=== PATIENT | female | born 1985 | race Caucasian/White ===

== ENCOUNTER 2022-05-17 11:50 | Outpatient (CLI) | payer MEDICAID, SELFPAY ==
--- NOTE | 2022-05-17 12:08 | XR_ITS ---
WS: [id number] XR cervical spine 3V* [id number] REASON FOR EXAM: chronic neck pain FINDINGS: Mild straightening of the normal lordosis of the cervical spine. Normal odontoid and cervical vertebral bodies. Intervertebral disc spaces are intact and well preserved. Normal facet joints. 1.5 mm of anterolisthesis of C4 on C5. XR/XR cervical spine 3V* [id number] IMPRESSION: Mild straightening of the normal lordosis of the cervical spine with slight ant erolisthesis of C4 on C5.
[2022-05-17 13:44] LABS: Testosterone Total 47.7 ng/dL (8.4-48.1)
[2022-05-17 14:21] LABS: Luteinizing Hormone 8.8 mIU/mL (0.5-41.7); Prolactin 5.66 ng/mL (4.8-23.3)
[2022-05-21 16:59] LABS: Estrogens Total 173.6 pg/mL
== END 2022-05-17 11:51 | disposition home or self-care (01) ==
LOC: RAD 11:54
PROVIDERS: PCP Family Medicine; Visit Provider Family Medicine
DX: M54.2 Cervicalgia (principal); G89.29 Other chronic pain; E28.2 Polycystic ovarian syndrome
CPT/HCPCS: 36415; 72040; 82672; 83001; 83002; 84144; 84146; 84403

== ENCOUNTER 2022-06-02 06:00 | Outpatient (RCR) | payer MEDICAID, SELFPAY | END 2022-06-08 23:59 | disposition home or self-care (01) | LOC: SPT 06:00 | PROVIDERS: PCP Family Medicine; Visit Provider Family Medicine | DX: M62.838 Other muscle spasm (principal); M54.2 Cervicalgia; G89.29 Other chronic pain | CPT/HCPCS: 97110; 97162 ==

== ENCOUNTER 2022-06-09 06:00 | Outpatient (RCR) | payer MEDICAID, SELFPAY | END 2022-07-09 23:59 | disposition home or self-care (01) | LOC: SPT 06:00 | PROVIDERS: PCP Family Medicine; Visit Provider Family Medicine | DX: M54.2 Cervicalgia (principal); M62.838 Other muscle spasm; G89.29 Other chronic pain | CPT/HCPCS: 97110 ==

== ENCOUNTER 2022-08-23 07:57 | Outpatient (CLI) | payer MEDICAID, SELFPAY ==
--- NOTE | 2022-08-23 08:00 | MR_ITS ---
WS: [id number] MRI CERVICAL SPINE NONCONTRAST TECHNIQUE: Sagittal T1, T2 and STIR imaging. Axial T2, gradient, and fiesta imaging. CLINICAL INFORMATION: M54.2 - Cervicalgia COMPARISON: None. FINDINGS: Straightening of the normal cervical lordosis. Mild disc bulging C5-C6 and C6-C7. Cord signal is norm al. No high-grade central canal stenosis. C2-C3: Normal. C3-C4: Mild facet arthropathy. Spinal canal and foramen are patent. C4-C5: Mild facet arthropathy. Spinal canal and foramen are patent. C5-C6: Mild disc osteophytic ridging. Slight impingement on the RIGHT ventral cervical cord. Mild fac et arthropathy. Mild RIGHT and no significant LEFT foraminal narrowing. C6-C7: Disc osteophyte complex with endplate ridging. Mild RIGHT and no LEFT foraminal narrowing. Mi ld facet arthropathy. Spinal canal is patent. C7-T1: Normal. Visualized brain stem structures: Normal. Prevertebral soft tissues: Normal. Incidental slightly low-lying cerebellar tonsils. Small LEFT thyroid nodule measuring 6 mm likely calcified. MR/MR cervical spin wo con* [id number] IMPRESSION: 1. Straightening of the normal cervical lordosis. Cord signal is normal. No hi gh-grade central canal stenosis. 2. Tiny RIGHT pericentral protrusion with slight indentation on cervical cord. Mild RIGHT foraminal narrowing. 3. Disc osteophyte complex eccentric to the RIGHT. Mild RIGHT foraminal narrow ing. Spinal canal is patent.
== END 2022-08-23 07:58 | disposition home or self-care (01) ==
LOC: RAD 08:00
PROVIDERS: PCP Family Medicine; Visit Provider Anesthesiology Pain Medicine
DX: G89.29 Other chronic pain (principal); M54.2 Cervicalgia
CPT/HCPCS: 72141